=== PATIENT | male | born 1965 | race Caucasian/White ===

== ENCOUNTER → 2018-11-01 | Outpatient (CLI) | payer BC ==
[~2018-11-01] MED LIST: CEPH-38 PO; HYDR-3720 PO; HYDR-707 PO; NAPR-243 PO; ORPH100T PO; TRM50T PO
--- NOTE | 2018-11-01 10:55 | Diagnostic Imaging Report ---
INDICATION: Right flank pain. Noncontrast CT of the abdomen and pelvis obtained. There is no prior study for comparison. The visualized portions of the lung bases are clear. There are no pleural fluid collections. There is no free intraperitoneal air. The liver shows no focal lesions. Gallbladder appears unremarkable. The spleen, adrenals, and pancreas appear normal. The left kidney appears normal. The right kidney shows a stone in the region of the renal pelvis measuring about 8 x 6 mm. There is some edema about the right renal pelvis which is likely inflammatory. There does not appear to be significant hydronephrosis or hydroureter. There is no retroperitoneal mass or adenopathy. There is no ascites or abnormal fluid collection. Visualized bowel loops including the appendix appear unremarkable. IMPRESSION: There is an 8 x 6 mm stone in the right renal pelvis as well as a tiny stone in the lower pole calyx. There does not appear to be significant hydronephrosis, but there is some edema about the renal pelvis suggesting inflammatory changes. Correlate with urinalysis. There is no other significant abnormality. Dictated by: Dictated on workstation # [id number]
== END ==
LOC: RAD 09:58
PROVIDERS: ATTEND Nurse Practitioner Family
DX: N20.2 Calculus of kidney with calculus of ureter (principal)
CPT/HCPCS: 74176

== ENCOUNTER 2018-11-08 14:07 | Outpatient (CLI) | payer BC ==
[~2018-11-08] VITALS: Ht 172.7 cm; Wt 122.9 kg
[~2018-11-08 14:07] MED LIST changes: -HYDR-3870 PO; -NITR-65 PO; -TAMS0.4C98 PO
[2018-11-09] MEDS ORDERED: TAMS0.4C98 PO (10:02)
[2018-11-09] MEDS ORDERED: HYDR-3870 PO (10:02)
[2018-11-09] MEDS ORDERED: NITR-65 PO (10:02)
== END 2018-11-08 14:57 | disposition home or self-care (01) ==
LOC: PREOP 14:07
PROVIDERS: ATTEND Urology
DX: Z01.818 Encounter for other preprocedural examination (principal)

== ENCOUNTER → 2018-11-08 | Outpatient (CLI) | payer BC ==
[~2018-11-08] MED LIST changes: +HYDR-3870 PO; +NITR-65 PO; +TAMS0.4C98 PO
--- NOTE | 2018-11-08 17:21 | Diagnostic Imaging Report ---
INDICATION: Nephrolithiasis EXAM: KUB at 11:40 AM FINDINGS: There is a 9 mm calculus projecting over the right renal pelvis. There are no calculi in the ureteral distribution. IMPRESSION: Right nephrolithiasis. Dictated by: Dictated on workstation # [id number]
== END ==
LOC: RAD 11:29
PROVIDERS: ATTEND Urology
DX: N20.0 Calculus of kidney (principal)
CPT/HCPCS: 74018

== ENCOUNTER 2018-11-09 06:30 | Day surgery (SDC) | payer BC ==
[~2018-11-09] VITALS: Ht 172.7 cm; Wt 122.9 kg
--- OUTSIDE RECORDS SUMMARY | 2018-11-09 06:34 | XMS REPORT | Continuity of Care Document ---
Author Author [facility] Address Unknown Phone Unavailable Allergies Active Description Code Type Severity Reaction Onset Reported/Identified Relationship to Patient Clinical Status Yes No Known Drug Allergies [id number] Drug Allergy Mild N/A 02/10/2009 Medications There is no data. 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 Results There is no data. Encounters ACCT No. Visit Date/Time Discharge Status Pt. Type Provider Facility Loc./Unit Complaint [id number] 12/19/2014 14:28:00 12/19/2014 23:59:59 CLS Outpatient TOMÁS FOX APRN [id number] 11/08/2018 14:07:00 11/08/2018 14:57:00 DIS Outpatient RONI LAN MD [facility] PREOP RIGHT RENAL STONE [id number] 11/01/2018 09:58:00 11/01/2018 23:59:59 CLS Outpatient JAVED DORADO APRN [facility] RAD CALCULUS OF KIDNEY W/ CALCULUS OF URETER [id number] 03/14/2014 10:51:00 03/14/2014 12:43:00 DIS Emergency GAURAV DARBY LILI White [facility] ER BACK/RIGHT HIP PAIN [id number] 11/09/2018 09:00:00 PEN Preadmit RONI LAN MD [facility] RIGHT RENAL STONE [id number] 11/08/2018 11:29:00 ACT Outpatient RONI LAN MD [facility] RAD RT RENAL STONE
[2018-11-09] MEDS ORDERED: cefTRIAXone FOR IV USE 1,000 MG in WATER (STERILE) FOR INJECTION 10 ML IV ONE (06:45)
[2018-11-09 06:50] VITALS: BP 138/90
[2018-11-09] MEDS ORDERED: CATHETER FLUSH 10 ML SYR IV PRN (07:00)
[2018-11-09] MEDS ORDERED: proPOfol 200 MG/20 ML (DIPRIVAN) VIAL IV ONE (07:06)
[2018-11-09] MEDS ORDERED: FUROSEMIDE 40 MG/4 ML INJ (LASIX) ONE (07:06)
[2018-11-09] MEDS ORDERED: LIDOCAINE PF 2% 5 ML (XYLOCAINE) VIAL ONE (07:06)
[2018-11-09] MEDS ORDERED: DEXAMETHASONE 10 MG/ML (DECADRON) 1 ML VIAL ONE (07:06)
[2018-11-09] MEDS ORDERED: SEVOFLURANE (ULTANE) 15 ML INHAL SOLN ONE ×2 (07:06→08:24)
[2018-11-09] MEDS ORDERED: ONDANSETRON 4 MG/2 ML (SDV) Z0FRAN ONE (07:06)
[2018-11-09] MEDS ORDERED: KETOROLAC 30 MG/ML VIAL ONE (07:06)
[2018-11-09] MEDS ORDERED: fentaNYL INJECTION 100 MCG/2 ML AMP ONE (07:07)
[2018-11-09] MEDS ORDERED: MIDAZOLAM 2 MG/2 ML (VERSED) VIAL ONE (07:07)
[2018-11-09] MEDS ORDERED: LACTATED RINGERS 1,000 ML IV PRN (07:09)
--- NOTE | 2018-11-09 07:13 | Progress Note-Pre Operative ---
Pre-Operative Progress Note H&P Reviewed The H&P was reviewed, patient examined and no changes noted. Date Seen by Provider: Nov 09, 2018 Time Seen by Provider: 07:13 Date H&P Reviewed: Nov 09, 2018 Time H&P Reviewed: 07:13 Pre-Operative Diagnosis: RT RENAL STONE RONI LAN MD Nov 09, 2018 07:13
--- NOTE | 2018-11-09 08:25 | Discharge Inst-Urology ---
Discharge Inst-Urology Discharge Medications New, Converted, or Re-newed RX: RX on Chart Patient Instructions/Follow Up Plan Please make appointment to been seen in office Tuesday 11/21, ABBY prior to it. KUWilliams on way home today Post ESWL instructions Increase oral fluids for 48 hours and then as needed. Diet and Activity as tolerated. If questions or concerns contact your physician Or seek help at emergency department. RONI LAN MD Nov 09, 2018 08:25
--- NOTE | 2018-11-09 08:26 | Progress Note-Post Operative ---
Post-Operative Progess Note Surgeon (s)/Provider Network Mgr (s) Surgeon RONI LAN MD Provider Network Mgr: NONE Pre-Operative Diagnosis RT RENAL STONE Post-Operative Diagnosis SAME Procedure & Operative Findings Date of Procedure 11/09/18 Procedure Performed/Findings RT ESWL Anesthesia Type GENERAL Estimated Blood Loss Estimated blood loss (mL): NONE Specimens/Packing Specimens Removed NONE Packing: NONE RONI LAN MD Nov 09, 2018 08:26
--- NOTE | 2018-11-09 08:30 | Diagnostic Imaging Report ---
INDICATION: Flank pain, lithotripsy. COMPARISON: 11/08/2018 at 11:38 AM. FINDINGS: No change in position of 10 mm right ureteral stone. Nonobstructive bowel gas pattern. Stable regional skeleton. IMPRESSION: Unchanged 10 mm right renal stone. Dictated by: Dictated on workstation # [id number]
[2018-11-09] MEDS ORDERED: ONDANSETRON 4 MG/2 ML (SDV) Z0FRAN IVP PRN (09:00)
[2018-11-09] MEDS ORDERED: HYDROmorphone 2 MG/ML VIAL (DILAUDID) IV ONE (09:00)
[2018-11-09 09:25] VITALS: BP 128/98
[2018-11-09 09:55] VITALS: BP 117/87
[2018-11-09] MEDS ORDERED: HYDR-3870 PO (10:02)
[2018-11-09] MEDS ORDERED: TAMS0.4C98 PO (10:02)
[2018-11-09] MEDS ORDERED: NITR-65 PO (10:02)
[2018-11-09 10:20] VITALS: BP 127/79
--- NOTE | 2018-11-09 10:33 | Diagnostic Imaging Report ---
INDICATION: Post extracorporeal shock wave lithotripsy. TECHNIQUE: Single supine view of the abdomen 9:44 AM CORRELATION STUDY: 11/09/2018 FINDINGS: The previously noted proximal 10 cm calcification of the right renal hilum not visualized. There is small approximately 6 mm calcification projecting in a similar location. Additional smaller calcifications over the inferior pole of the right kidney. No central calcification over the expected course of the right ureter. The calcification overlying the right SI joint unchanged. Moderate amount of bowel gas and stool. IMPRESSION: 1. Interval decrease in size of apparent calcification of the right renal pelvis. Approximately 6 mm calcification does remain in this area. Dictated by: Dictated on workstation # [id number]
--- NOTE | 2018-11-09 11:03 | Anesthesia-General Post-Op ---
General Patient Condition Mental Status/LOC: Same as Preop Cardiovascular: Satisfactory Nausea/Vomiting: Absent Respiratory: Satisfactory Pain: Controlled Complications: Absent Post Op Complications Complications None Follow Up Care/Instructions Patient Instructions None needed. Anesthesia/Patient Condition Patient Condition Patient is doing well, no complaints, stable vital signs, no apparent adverse anesthesia problems. No complications reported per nursing. KAILA AMAYA CRNA Nov 09, 2018 11:03
--- NOTE | 2018-11-09 13:25 | OPERATIVE REPORT ---
DATE OF SERVICE: 11/09/2018 PREOPERATIVE DIAGNOSIS: Right renal stone. POSTOPERATIVE DIAGNOSIS: Right renal stone. OPERATION PERFORMED: Right ESWL. SURGEON: Avila Lan MD ANESTHESIA: General. COMPLICATIONS: None. DESCRIPTION OF PROCEDURE: Under satisfactory general anesthesia, the patient in supine position on the ESWL table, the right renal stone was localized. Shocks were delivered at a kV of 4, total of 2500 shocks completely fragmented the stone that was hardly visible. The patient received 40 mg of Lasix and 30 mg of Toradol IV at the end of the procedure. He tolerated the procedure and anesthesia well and was sent to recovery room in stable condition. Job ID: [id number] DocumentID: [id number] Dictated Date: 11/09/2018 08:36:26 Cane Burner Date: 11/09/2018 13:24:42 Dictated By: AVILA LAN MD
== END 2018-11-09 10:20 | disposition home or self-care (01) ==
LOC: SDC 06:30
PROVIDERS: ATTEND Urology
DX: N20.0 Calculus of kidney (principal); Z11.2 Encounter for screening for other bacterial diseases; N40.0 Benign prostatic hyperplasia without lower urinary tract symptoms; N52.9 Male erectile dysfunction, unspecified; F17.210 Nicotine dependence, cigarettes, uncomplicated; E66.9 Obesity, unspecified; Z68.41 Body mass index [BMI] 40.0-44.9, adult
CPT/HCPCS: 74018; 87081

== ENCOUNTER 2018-11-21 14:09 | Outpatient (RCR) | payer BC | END 2019-02-19 | disposition home or self-care (01) | LOC: LAB 14:09 | PROVIDERS: ATTEND Urology | DX: N20.0 Calculus of kidney (principal) | CPT/HCPCS: 36415; 82140; 82340; 82507; 82570; 83735; 83945; 83986; 84105; 84133; 84300; 84392; 84560 ==

== ENCOUNTER → 2018-11-21 | Outpatient (CLI) | payer BC ==
[~2018-11-21] MED LIST changes: +HYDR-3870 PO; +NITR-65 PO; +TAMS0.4C98 PO
--- NOTE | 2018-11-21 13:45 | Diagnostic Imaging Report ---
INDICATION: Followup renal calculus. COMPARISON: 11/09/2018. FINDINGS: Two supine radiographic views of the abdomen were obtained. Previously described small calculus projecting over the inferior pole of the right kidney can no longer be identified. Findings could be on the basis of interval migration versus obscuration by overlying large and small bowel contents. Pelvic phleboliths are again noted. No unexpected radiopaque foreign bodies are identified. Small bowel loops are air-filled, but nondistended. Moderate amount of air and gas is noted scattered throughout the colon. Included portions of the lung bases are clear. IMPRESSION: 1. No evidence of right renal nephrolithiasis with considerations as described above. Dictated by: Dictated on workstation # [id number]
== END ==
LOC: RAD 13:15
PROVIDERS: ATTEND Urology
DX: N20.0 Calculus of kidney (principal)
CPT/HCPCS: 74018

== ENCOUNTER → 2018-12-19 | Outpatient (CLI) | payer BC ==
--- NOTE | 2018-12-19 15:48 | Diagnostic Imaging Report ---
INDICATION: Nephrolithiasis. EXAMINATION: KUB at 2:05 PM. FINDINGS: There is a large amount of stool in the colon which obscures both kidneys. No obvious calculus is seen in either kidney. There is a 6 mm mesenteric calcification just above the iliac crest. There are two small calcifications in the left side of the pelvis which are probably phleboliths. IMPRESSION: The right kidney is largely obscured by fecal material. No calculi are discernible. Dictated by: Dictated on workstation # [id number]
== END ==
LOC: RAD 13:58
PROVIDERS: ATTEND Urology
DX: N20.0 Calculus of kidney (principal)
CPT/HCPCS: 74018